=== PATIENT | female | born 1955 | race Caucasian/White ===

== ENCOUNTER 2017-09-05 17:10 | Emergency (ER) | payer MEDICAID ==
[~2017-09-05 17:10] MED LIST: ATOR10TA PO; LANS30CA56 PO; SUCR1ORA2 PO
[2017-09-05 17:29] VITALS: BP 140/92
[2017-09-05] MEDS ORDERED: orphenadrine citrate 60mg/2ml inj. IM ONE (18:50)
[2017-09-05] MEDS ORDERED: ketorolac trometh inj. 60 MG/2 ML VIAL IM ONE (18:50)
[2017-09-05] MEDS ORDERED: HYDROcodone/acetaminophen 10/325mg tab PO ONE (18:50)
[2017-09-05] MEDS ORDERED: morphine 4 MG/ML inj SYRINge IM ONE (19:30)
[2017-09-05] MEDS ORDERED: ORPH100T2 PO (19:32)
[2017-09-05] MEDS ORDERED: HYDR-565 PO (19:32)
[2017-09-05] MEDS ORDERED: IBUP-1984 PO (19:32)
== END 2017-09-05 19:46 | disposition home or self-care (01) ==
LOC: ER 17:10
DX: M54.2 Cervicalgia (principal); K21.9 Gastro-esophageal reflux disease without esophagitis; F17.200 Nicotine dependence, unspecified, uncomplicated; Z79.899 Other long term (current) drug therapy
CPT/HCPCS: 96372; 99284; J1885; J2270; J2360